=== PATIENT | female | born 1955 | race Caucasian/White ===

== ENCOUNTER 2019-05-20 02:52 | Observation (INO) ==
[2019-05-20] MEDS ORDERED: IOPAMIDOL 100 ML BOTTLE IV ONE (02:53)
[2019-05-20] MEDS ORDERED: LACTATED RINGERS 1,000 ML IV ONE ×3 (03:15→06:06)
[2019-05-20] MEDS ORDERED: HYDROmorphone 2 MG/ML VIAL IV PRN ×4 (03:15→11:59)
[2019-05-20] MEDS ORDERED: ONDANSETRON 4 MG/2 ML VIAL IV ONE ×4 (03:15→10:45)
--- NOTE | 2019-05-20 03:15 | Emergency Department Note ---
Abdominal Pain HPI - General Chief Complaint: Abdominal Pain Stated Complaint: abd. pain Time Seen by Provider: 05/20/19 03:05 Source: EMS Mode of arrival: ambulatory - History of Present Illness HPI Narrative: Abdominal pain started in the periumbilical area about 11 PM. Gradually increase, moved into the right lower quadrant and now consistent steady in the right lower quadrant and the abdomen. She still has her appendix. She status post cholecystectomy. Pain gradually worsening. Not radiating. She did have a few episodes of emesis, also a few liquid all movements slight cough a few days ago gradually improving. Denies chest pain, denies shortness of breath. She is not hypoxic. No other family members ill. MD Complaint: abdominal pain - Related Data Home Medications Medication Instructions Recorded Confirmed DULoxetine HCL [Cymbalta] 60 mg PO DAILY 01/30/16 05/20/19 Metoprolol Tartrate [Lopressor] 25 mg PO DAILY 01/30/16 05/20/19 Rosuvastatin Calcium [Crestor] 5 mg PO DAILY 01/30/16 05/20/19 Icaps Areds Softgel DAILY 04/08/19 Previous Rx's Medication Instructions Recorded Nitrofurantoin Sr [Macrobid] 100 mg PO BID #14 cap 04/08/19 Allergies Allergy/AdvReac Type Severity Reaction Status Date / Time codeine AdvReac Intermediate Nausea Verified 04/08/19 20:04 lisinopril AdvReac Intermediate Cough Verified 04/08/19 20:04 Review of Systems All systems ED: reviewed and negative except as stated. Abdominal Pain PMH - Past Medical History Medical history: Reports: hypertension, other (Hypertriglyceridemia, ) Reports: kidney stone Surgical history ED: Reports: cholecystectomy Psychiatric history: Reports: anxiety, depression - Social History Smoking status: Current every day smoker Alcohol use: Reports: Occasionally Drug use: Reports: none Physical Exam Limitations: no limitations General appearance: alert, grimacing, in distress, nontoxic Head: atraumatic, normocephalic, normal inspection Eye: Present: normal appearance, PERRL, EOMI, visual herring intact. Absent: conjunctival injection ENT: Present: normal exam, normal oropharynx, mucous membranes moist, normal external ear exam. Absent: nasal congestion Neck: Present: normal inspection, full ROM, trachea midline Chest: Present: normal inspection, symmetric chest wall rise Respiratory: Present: normal lung sounds bilaterally. Absent: respiratory distress, rales/crackles, wheezes Cardiovascular: Present: regular rate, normal rhythm, normal heart sounds Abdominal: Present: soft, tenderness, guarding, normal bowel sounds. Absent: hernia Abdominal tenderness: Present: RLQ Extremities: Present: normal inspection, full ROM. Absent: tenderness Back: Absent: CVA tenderness (R), CVA tenderness (L) Neurological: Present: alert, oriented X3, CN II-XII intact Psychiatric: Present: normal affect Skin: Present: warm, dry, normal color Course - Reevaluation(s) Reevaluation #1: Review the. She does have 7 RBCs as well as 7. WBCs on her urinalysis. Otherwise, labs look normal. We checked the abdomen still does reveal tenderness right lower quadrant in the area of McBurney. She is not tender in the pelvic area, i.e., the adnexal regions, and thus I doubt this is pelvic pain. Pain also started in the epigastric area and then migrated down towards the right lower quadrant. The. Pain somewhat improved with narcotic administration in. She seems reasonably comfortable at this time. Urinalysis inconclusive, thus we will proceed with CT scan of the abdomen and pelvis Reevaluation #2: Direct radiology report came back showing 1 cm appendix and possible appendicitis. The. She does have 2 appendicoliths, which are small. I spoke with Dr. Welsh, we will be in to see the patient for further evaluation. Impression is appendicitis. Abdominal pain. Presentation consistent with appendicitis, although cannot rule out other inflammatory bowel condition. General surgery consult requested. Vital Signs Temperature 97.5 F 05/20/19 02:52 Pulse Rate 72 05/20/19 02:52 Respiratory Rate 18 05/20/19 02:52 Blood Pressure 161/74 05/20/19 02:52 Pulse Oximetry (%) 97 05/20/19 02:52 Temperature 97.5 F 05/20/19 02:52 Pulse Rate 79 05/20/19 08:16 Respiratory Rate 18 05/20/19 02:52 Blood Pressure 120/59 05/20/19 08:16 Pulse Oximetry (%) 92 05/20/19 08:16 Abdominal Pain - MDM Narrative Medical decision making narrative: Impressions abdominal pain, right lower quadrant. Suspicious For appendicitis - Lab Data Lab results reviewed: Yes I reviewed the patient's lab results. Result diagrams: 05/20/19 03:25 05/20/19 03:25 Lab Results 05/20/19 05/20/19 05/20/19 Range/Units 03:25 03:25 03:31 WBC 10.9 (4.50-11.00) K/mcL RBC 4.71 (3.59-5.38) M/mcL Hgb 14.1 (11.2-15.7) g/dL Hct 41.6 (34.1-44.9) % MCV 88.3 (80.0-100.0) fL MCH 29.9 (26.0-34.0) pg MCHC 33.9 (31.0-36.0) g/dL RDW 13.6 (11.5-14.5) % Plt Count 162 (140-440) K/mcL MPV 11.6 H (7.4-10.4) fL Gran % 88.9 H (38.0-78.0) % Lymph % (Auto) 5.2 L (15.5-49.0) % [place] % (Auto) 5.4 (1.0-12.0) % Eos % (Auto) 0.2 (0.0-7.0) % Baso % (Auto) 0.3 (0.0-2.0) % Gran # 9.66 H (1.80-8.00) K/mcL Lymph # (Auto) 0.56 L (1.50-4.80) K/mcL [place] # (Auto) 0.59 (0.10-0.90) K/mcL Eos # (Auto) 0.02 (0.00-0.70) K/mcL Baso # (Auto) 0.03 (0.00-0.30) K/mcL VBG Lactic Acid 1.2 (0.5-2.0) mmol/L Sodium 132 L (133-145) mmol/L Potassium 3.5 (3.3-5.1) mmol/L Chloride 94 L (96-108) mmol/L Carbon Dioxide 23 (22-30) mmol/L Anion Gap 15.0 (8-16) BUN 10 (8-23) mg/dl Creatinine 0.7 (0.6-1.1) mg/dl GFR Calculation 91 Glucose 124 H (70-105) mg/dL Calcium 9.2 (8.6-10.4) mg/dl Total Bilirubin 0.2 (0.0-1.0) mg/dL AST 25 (0-37) U/l ALT 26 (0-40) U/l Alkaline Phosphatase 91 (39-117) U/L C-Reactive Protein 0.7 (0.0-0.8) mg/dl Total Protein 7.3 (5.9-8.4) gm/dL Albumin 4.2 (3.2-5.2) gm/dL Globulin 3.1 (2.2-3.7) gm/dL Albumin/Globulin Ratio 1.4 (1.0-2.3) Urine Color Urine Appearance Urine pH (5.0-9.0) Ur Specific [place] (1.000-1.035) Urine Protein (NEG) mg/dL Urine Glucose (UA) (NEG) mg/dL Urine Ketones (NEG) mg/dL Urine Occult Blood (<0.03) mg/dL Urine Nitrate (NEG) Urine Bilirubin (NEG) mg/dL Urine Urobilinogen (NEG) mg/dL Ur Leukocyte Esterase (NEG) /uL Urine RBC (0-1) /hpf Urine WBC (0-4) /hpf Ur Squamous Epith Cells (0-4) /hpf Urine Bacteria (0) /hpf Hyaline Casts (0-2) /lpf Urine Mucus (0) /hpf Ur Culture Indicated? 05/20/19 Range/Units 04:50 WBC (4.50-11.00) K/mcL RBC (3.59-5.38) M/mcL Hgb (11.2-15.7) g/dL Hct (34.1-44.9) % MCV (80.0-100.0) fL MCH (26.0-34.0) pg MCHC (31.0-36.0) g/dL RDW (11.5-14.5) % Plt Count (140-440) K/mcL MPV (7.4-10.4) fL Gran % (38.0-78.0) % Lymph % (Auto) (15.5-49.0) % [place] % (Auto) (1.0-12.0) % Eos % (Auto) (0.0-7.0) % Baso % (Auto) (0.0-2.0) % Gran # (1.80-8.00) K/mcL Lymph # (Auto) (1.50-4.80) K/mcL [place] # (Auto) (0.10-0.90) K/mcL Eos # (Auto) (0.00-0.70) K/mcL Baso # (Auto) (0.00-0.30) K/mcL VBG Lactic Acid (0.5-2.0) mmol/L Sodium (133-145) mmol/L Potassium (3.3-5.1) mmol/L Chloride (96-108) mmol/L Carbon Dioxide (22-30) mmol/L Anion Gap (8-16) BUN (8-23) mg/dl Creatinine (0.6-1.1) mg/dl GFR Calculation Glucose (70-105) mg/dL Calcium (8.6-10.4) mg/dl Total Bilirubin (0.0-1.0) mg/dL AST (0-37) U/l ALT (0-40) U/l Alkaline Phosphatase (39-117) U/L C-Reactive Protein (0.0-0.8) mg/dl Total Protein (5.9-8.4) gm/dL Albumin (3.2-5.2) gm/dL Globulin (2.2-3.7) gm/dL Albumin/Globulin Ratio (1.0-2.3) Urine Color Straw Urine Appearance Clear Urine pH 6.0 (5.0-9.0) Ur Specific [place] 1.009 (1.000-1.035) Urine Protein Neg (NEG) mg/dL Urine Glucose (UA) Negative (NEG) mg/dL Urine Ketones 20 A (NEG) mg/dL Urine Occult Blood 0.2 A (<0.03) mg/dL Urine Nitrate Neg (NEG) Urine Bilirubin Neg (NEG) mg/dL Urine Urobilinogen Neg (NEG) mg/dL Ur Leukocyte Esterase 75 A (NEG) /uL Urine RBC 7 H (0-1) /hpf Urine WBC 7 H (0-4) /hpf Ur Squamous Epith Cells < 1 (0-4) /hpf Urine Bacteria 0 (0) /hpf Hyaline Casts 3 H (0-2) /lpf Urine Mucus Few (0) /hpf Ur Culture Indicated? No - Radiology Data Radiology results reviewed: Yes I reviewed the patient's radiology results. Disposition Pt seen by MEMORANDUM STATEMENT CLERK/PA only: No Clinical Impression: Abdominal pain, Acute appendicitis Disposition: Xfer As Outpt/Obs ([facility]) Condition: Fair Referrals: Jose Alonso MD [Primary Care Provider] -
[2019-05-20 04:17] LABS: Basophils # (Auto) 0.03 K/mcL (0.00-0.30); Basophils % (Auto) 0.3 % (0.0-2.0); Eosinophils # (Auto) 0.02 K/mcL (0.00-0.70); Eosinophils % (Auto) 0.2 % (0.0-7.0); Granulocytes % (Auto) 88.9 % (38.0-78.0); Hematocrit 41.6 % (34.1-44.9); Hemoglobin 14.1 g/dL (11.2-15.7); Lymphocytes # (Auto) 0.56 K/mcL (1.50-4.80); Lymphocytes % (Auto) 5.2 % (15.5-49.0); Mean Cell Volume 88.3 fL (80.0-100.0); Mean Corpuscular HGB Conc 33.9 g/dL (31.0-36.0); Mean Platelet Volume 11.6 fL (7.4-10.4); Monocytes # (Auto) 0.59 K/mcL (0.10-0.90); Monocytes % (Auto) 5.4 % (1.0-12.0); Platelet Count 162 K/mcL (140-440); RBC 4.71 M/mcL (3.59-5.38); Red Cell Distribution Width 13.6 % (11.5-14.5); WBC 10.9 K/mcL (4.50-11.00)
[2019-05-20 04:33] LABS: ALT/SGPT 26 U/l (0-40); AST/SGOT 25 U/l (0-37); Albumin 4.2 gm/dL (3.2-5.2); Albumin/Globulin Ratio 1.4 (1.0-2.3); Alkaline Phosphatase 91 U/L (39-117); Bilirubin,Total 0.2 mg/dL (0.0-1.0); Blood Urea Nitrogen 10 mg/dl (8-23); C-Reactive Protein 0.7 mg/dl (0.0-0.8); Calcium 9.2 mg/dl (8.6-10.4); Carbon Dioxide 23 mmol/L (22-30); Globulin 3.1 gm/dL (2.2-3.7); Glomerular Filtration Rate 91; Glucose 124 mg/dL (70-105)
[2019-05-20 04:41] LABS: Chloride 94 mmol/L (96-108)
[2019-05-20 06:25] LABS: Appearance,Urine CLEAR; Bacteria,Urine 0 /hpf (0); Bilirubin,Urine NEG (NEG); Color,Urine STRAW; Culture Indicated,Urine NO; Glucose,Urine (UA) NEGATIVE (NEG); Ketones,Urine 20 mg/dL (NEG); Leukocyte Esterase,Urine 75 /uL (NEG); Mucus,Urine FEW /hpf (0); Nitrate,Urine NEG (NEG); Protein,Urine NEG (NEG); Specific Gravity,Urine 1.009 (1.000-1.035); Urine Blood 0.2 mg/dL (<0.03); Urine Hyaline Cast 3 /lpf (0-2); Urine RBC 7 /hpf (0-1); Urine Squamous Epithelial Cell < 1 /hpf (0-4); Urine WBC 7 /hpf (0-4); Urobilinogen,Urine NEG (NEG)
[2019-05-20] MEDS ORDERED: IPRATROPIUM/ALBUTEROL 3 ML AMPUL.NEB NEB ONE (08:46)
[2019-05-20] MEDS ORDERED: cefOXitin 2 GM VIAL IV STA (09:38)
--- NOTE | 2019-05-20 09:46 | General Surg History&Physical ---
History of Present Illness Patient information: Note initiated : 05/20/19 at 9:42 am Service Date, if different from initiated Date: [] Patient: Kayla Cannon 64 y/o F admitted on for abd. pain. Chief Complaint: pain HPI: Ms. Cannon is a 64 year old F reports an approximately 12 hour history of abdominal pain. She states that it started around the umbilicus and has subsequently gone down to the right lower quadrant. She states now that even light touch in the right lower quadrant is painful. She reports non-bloody emesis as well as a small amount of nonbloody diarrhea. She denies subjective fever or chills. She denies any prior history. Her only other abdominal history is is of a laparoscopic appendectomy approximately 20 years ago. 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 [place], denies having family in the area Medications and Allergies Home Medications Medication Instructions Recorded Confirmed Type DULoxetine HCL [Cymbalta] 60 mg PO DAILY 01/30/16 05/20/19 History Metoprolol Tartrate [Lopressor] 25 mg PO DAILY 01/30/16 05/20/19 History Rosuvastatin Calcium [Crestor] 5 mg PO DAILY 01/30/16 05/20/19 History Icaps Areds Softgel DAILY 04/08/19 History Nitrofurantoin Sr [Macrobid] 100 mg PO BID #14 cap 04/08/19 Rx Allergies Allergy/AdvReac Type Severity Reaction Status Date / Time codeine AdvReac Intermediate Nausea Verified 04/08/19 20:04 lisinopril AdvReac Intermediate Cough Verified 04/08/19 20:04 Exam Temp Pulse Resp BP Pulse Ox 97.5 F 80 18 131/60 95 05/20/19 02:52 05/20/19 08:31 05/20/19 02:52 05/20/19 08:31 05/20/19 08:31 - General physical appearance well developed, well nourished, no distress - Eyes PERRL, normal ocular movement - Cardiovascular Cardiovascular exam IM: Present: normal rate and rhythm - Respiratory normal expansion, normal respiratory effort, clear to percussion, clear to auscultation - Abdomen Abdomen: Present: soft, tender. Absent: bowel sounds (right lower quadrant) Hernia: Present: none - Integumentary Present: no rash, no growths, no abnormal pigmentation - Neurologic Present: normal coordination, normal sensation - Psychiatric Present: oriented to time, oriented to person, oriented to place, speech is normal, memory intact Results - Results CT scan - abdomen: report reviewed, image reviewed CT scan - pelvis: report reviewed, image reviewed (Appendicitis) Assessment and Plan (1) Acute appendicitis Laparoscopic possibly open appendectomy Status: Acute Qualifiers: Acute appendicitis type: with localized peritonitis
[2019-05-20] MEDS ORDERED: LIDOCAINE HCL/PF 100 MG/5 ML SYRINGE IV ONE (10:45)
[2019-05-20] MEDS ORDERED: ROCURONIUM 10 MG/ML ML IV ONE (10:45)
[2019-05-20] MEDS ORDERED: KETAMINE 100 MG/ML ML IV ONE (10:45)
[2019-05-20] MEDS ORDERED: fentaNYL 100 MCG/2 ML VIAL IV ONE (10:45)
[2019-05-20] MEDS ORDERED: GLYCOPYRROLATE 0.2 MG/ML VIAL IV ONE (10:45)
[2019-05-20] MEDS ORDERED: SUGAMMADEX SODIUM 200 MG/2 ML VIAL IV ONE (10:45)
[2019-05-20] MEDS ORDERED: PHENYLEPHRINE 10 MG/ML VIAL IV ONE (10:45)
[2019-05-20] MEDS ORDERED: PROPOFOL 200 MG/20 ML VIAL IV ONE (10:45)
[2019-05-20] MEDS ORDERED: MIDAZOLAM 2 MG/2 ML VIAL IV ONE (10:45)
[2019-05-20] MEDS ORDERED: MAGNESIUM HYDROXIDE 30 ML ORAL.SUSP PO PRN (11:57)
[2019-05-20] MEDS ORDERED: MEPERIDINE 25 MG/ML SYRINGE IV PRN (11:59)
[2019-05-20] MEDS ORDERED: ONDANSETRON 4 MG/2 ML VIAL IV PRN ×2 (11:59→12:02)
[2019-05-20] MEDS ORDERED: IPRATROPIUM/ALBUTEROL 3 ML AMPUL.NEB NEB PRN (11:59)
[2019-05-20] MEDS ORDERED: KETOROLAC 15 MG/ML VIAL IV PRN (11:59)
[2019-05-20] MEDS ORDERED: ACETAMINOPHEN 1,000 MG/100 ML BOTTLE IV ONE (11:59)
[2019-05-20] MEDS ORDERED: fentaNYL 100 MCG/2 ML VIAL IV PRN (11:59)
[2019-05-20] MEDS ORDERED: LACTATED RINGERS 1,000 ML IV SCH ×2 (12:00→22:45)
[2019-05-20] MEDS ORDERED: oxyCODONE HCL 5 MG TABLET PO PRN (12:02)
--- NOTE | 2019-05-20 12:05 | Brief Operative Note ---
Date of procedure: 05/20/19 Pre-op diagnosis: appendicitis Post-op diagnosis: same Procedure: Laparoscopic appendectomy Grafts/Implants: No Anesthesia: GETA, local Findings: Appendicitis Complications: none Surgeon: Obie Wiley Estimated blood loss (cc): 10 Specimens Removed/Pathology: other (appendix) Condition: stable Disposition: PACU
[2019-05-20] MEDS ORDERED: BUPIVACAINE W/EPI 0.5% 50 ML VIAL IJ ONE (12:11)
--- NOTE | 2019-05-20 12:16 | Discharge Plan ---
Discharge Plan - Patient/Caregiver Discharge Instructions Activity: other (as tolerated) Diet: Regular Diet Prescriptions: Ibuprofen 600 mg PO Q6H PRN #24 tab PRN Reason: Pain Prescription Printed oxyCODONE HCL [Roxicodone] 5 mg PO Q4-6HP PRN #18 tablet PRN Reason: Per Pain Protocol - Follow up Plan Follow up with: Jose Alonso MD [Primary Care Provider] - Gallito Sams MD [Physician] - (Call for an appointment in 5-7 days) Disposition: Home, Self-Care Prognosis: Good Rehab Potential: Good I certify that the patient requires SNF services.: No Overall status at discharge: patient is progressing back to baseline
--- NOTE | 2019-05-20 13:45 | Cat Scan Report ---
CLINICAL INFORMATION: Right lower quadrant pain COMPARISON: None. TECHNIQUE: Following enteric contrast, 80 cc of Isovue-370 were injected intravenously, and 60 seconds later, 0.625 mm helical slices were obtained from the mid heart through the subtrochanteric regions. Following reconstruction, 2.5 mm sagittal, coronal and axial reformatted images were processed and reviewed at bone, lung and soft tissue windows. Five minutes later, 0.625 mm helical slices were obtained from the mid heart through the kidneys and viewed at soft tissue windows.The exam was performed using radiation dose optimization techniques including, but not limited to, automated exposure control, adjustment of the mA and/or kV according to patient size and use of iterative reconstruction technique. FINDINGS: Lung bases show no abnormality - no effusion. The visualized heart is normal. Abdominal images show minimal fatty change within the liver no focal lesions. The gallbladder is surgically absent. Common bile duct is mildly dilated, 9 mm, compatible with post cholecystectomy state. The pancreas, right kidney, both adrenal glands and aorta including aortic branches are normal in size configuration and attenuation without focal lesion. Multiple small calcified granulomas are present within the spleen. There is a 16 mm nonobstructing stone inferior calyx left kidney and a 2 mm nonobstructing stone within a superior calyx of the left kidney. No hydronephrosis or obstructing stone. Pelvic images show anteflexed postmenopausal uterus which is normal in size 0.3 x 4 cm. There is a 2.3 cm calcified subserosal fibroid in the right uterine fundus. The region of the ovaries is normal. There is no free air, free fluid or adenopathy. The appendix is located in the lateral pericecal region and is dilated - spanning 10 mm with wall thickening and inflammatory change in the periappendiceal fat. In addition, there are two small appendicoliths within the lumen both approximately 5 mm. The stomach, small bowel and large bowel are grossly normal.. Bone windows show no osseous abnormality IMPRESSION: 1. Simple appendicitis. The appendix is located in the lateral pericecal region. 2. 2.3 cm partially calcified subserosal fibroid - right uterine fundus. 3. 16mm nonobstructing stone inferior calyx left kidney and 2 mm nonobstructing stone within a superior calyx of the left kidney. Interpreted and Authenticated by: Homero Welch 05/20/19
[2019-05-20] MEDS: 0.9 % SODIUM CHLORIDE 10 ML SYRINGE IV SCH ×2 (15:07→20:58)
[2019-05-20] MEDS: ACETAMINOPHEN 500 MG TABLET PO SCH ×2 (17:28→21:03)
[2019-05-20] MEDS ORDERED: KETOROLAC 15 MG/ML VIAL IV SCH (18:00)
[2019-05-20] MEDS: DOCUSATE SODIUM 100 MG CAPSULE PO SCH (21:12)
[2019-05-21] MEDS: ACETAMINOPHEN 500 MG TABLET PO SCH ×2 (03:16→11:39)
[2019-05-21] MEDS: DOCUSATE SODIUM 100 MG CAPSULE PO SCH (08:20)
[2019-05-21] MEDS: 0.9 % SODIUM CHLORIDE 10 ML SYRINGE IV SCH (08:20)
--- NOTE | 2019-05-21 09:04 | General Surgery Progress Note ---
Subjective Patient reports: no new complaints Narrative: Note initiated : 05/21/19 at 9:02 am Service Date, if different from initiated Date: [] Patient: Kayla Cannon 64 y/o F admitted on 05/20/19 for abd. pain. Chief Complaint: s/p appendicitis Pertinent ROS: no issues tolerating PO well ambulating well discomfort well controlled with APAP Objective Temp Pulse Resp BP Pulse Ox 98.1 F 64 16 155/74 96 05/21/19 03:15 05/21/19 03:15 05/21/19 03:15 05/21/19 03:15 05/21/19 03:15 - Additional Data Intake & Output - Last 24 hours: Intake & Output 05/19/19 05/20/19 05/21/19 05/22/19 05:59 05:59 05:59 05:59 Intake Total 1000 4150 Output Total 4055 Balance 1000 95 Weight 170 lb 172 lb - Abdomen non tender, wound (benign) - Labs 05/20/19 03:25 05/20/19 03:25 Assessment and Plan (1) Acute appendicitis Status: Acute Assessment and plan: No issues DC home FU in clinic Current Visit: Yes - Time Spent With Patient Total time spent is greater than 50% in coordination of care (as documented) at patient's floor/unit and/or counseling patient:
[2019-05-21] MEDS ORDERED: PNEUMOCOCCAL 23-VAL P-SAC VAC 0.5 ML SYRINGE IM ONE (10:00)
--- NOTE | 2019-05-22 07:19 | Operative Note ---
DATE OF OPERATION: 05/20/2019 PREOPERATIVE DIAGNOSIS: Appendicitis. POSTOPERATIVE DIAGNOSIS: Appendicitis. PROCEDURE PERFORMED: Laparoscopic appendectomy. SURGEON: Obie Wiley MD ANESTHETIC: General and local. DESCRIPTION OF PROCEDURE: After induction of general anesthetic, the patient's abdomen was cleaned with ChloraPrep solution prior to being sterilely draped. An incision was made just below the umbilicus. A Veress needle was used to insufflate the abdominal cavity. A 5 mm Visiport trocar was utilized to gain access to the abdominal cavity under direct vision. A 5 mm trocar was placed in the left lower quadrant and a 10/12 trocar in the suprapubic position. All of the wounds were infiltrated with 0.25% Marcaine with epinephrine. The appendix was then identified. An opening was made in the mesentery of the appendix at the base of the appendix so that a SHANNON stapling device could be passed across the base of the appendix. A white load of james was utilized. The device was deployed and the appendix was from the cecum. The appendiceal mesentery was then divided using the LigaSure instrument. The appendix was then placed in an EndoCatch sac and removed through the suprapubic fascial defect. It was sent for pathological examination. The operative field was then examined. Meticulous hemostasis was obtained. Remainder of the abdominal cavity was unremarkable, as visible. Using a Robbin-Shanita suture passer, the fascia defect in the suprapubic position was closed using 0 Vicryl suture. The abdomen was desufflated. The skin wounds were closed using subcuticular 4-0 Vicryl. Skin glue was applied to the wounds. The patient was thereafter awakened, extubated, and transferred to the recovery room in stable condition. ESTIMATED BLOOD LOSS: Negligible. COMPLICATIONS: None. SPECIMEN: Appendix. DRAINS: None. DEN:jannette Job ID: [id number] Doc ID: [id number] Obie Wiley MD
--- NOTE | 2019-05-22 14:53 | Surgical Pathology Report ---
HISTOLOGY SPECIMEN MICROSCOPIC DIAGNOSIS APPENDIX, APPENDECTOMY: -- SUPPURATIVE ACUTE APPENDICITIS WITH TRANSMURAL INFLAMMATION AND ACUTE PERITONITIS. (ACP:adj) PROCEDURAL IMPRESSION Appendicitis. GROSS DESCRIPTION Received in formalin labeled appendix, is an 8.5 cm long by up to 1 cm in diameter arredondo-benavidez appendix with 2 cm of attached yellow-benavidez adipose tissue. The margin has been stapled closed. There is a thickened white-benavidez possible exudate throughout the surface. The lumen contains soft yellow-brown fecal material. Grossly no perforations are identified. Ophthalmic Aide sections submitted - two cassettes. (STS:sln) Electronically Signed by: Jaciel Lopez M.D.
== END 2019-05-21 12:30 | disposition home or self-care (01) ==
LOC: ED 02:52 → SSSU 10:17 → MEDSUR 10:17
PROVIDERS: ADMIT Surgery; ATTEND Surgery